=== PATIENT | male | born 1965 | race Caucasian/White ===

== ENCOUNTER 2017-12-12 07:14 | Day surgery (SDC) | payer BC ==
[2017-12-08 11:48] VITALS: BMI 28.2
[~2017-12-12 07:14] MED LIST: LACTATED RINGERS 1,000 ML IV SCH
[2017-12-12 07:30] VITALS: TEMP 97
[2017-12-12] MEDS ORDERED: LACTATED RINGERS 1,000 ML IV ONE (07:33)
[2017-12-12] MEDS ORDERED: PROPOFOL 10 MG/ML 20 ML VIAL IV ONE (08:18)
--- NOTE | 2017-12-12 09:01 | P.PCN ---
Date of Procedure: 12/12/17 Procedure(s) Performed: Procedure: Total colonoscopy. Preoperative diagnosis: Screening for neoplasia. Postoperative diagnoses: Exam within normal limits. Preparation: HalfLytely prep. Sedation: Was provided by anesthesia. Brief clinical history: The patient is a 52-year-old male who is scheduled for this evaluation for screening for neoplasia age being his risk factor. The patient may have had a prior exam more than 10 years ago. He has no abdominal complaints, bleeding or anemia. No family history of colon cancer. Procedure: With the patient on his left lateral decubitus position and after informed consent and adequate sedation, the perianal area was inspected and it did not show any fissures or fistulas. There were no masses felt on digital rectal examination. The Olympus CFQ 160L endoscope was then inserted in the rectum in the usual fashion and advanced to the cecum. The mucosa appeared healthy. No polyps or tumors were seen or any obvious diverticular disease or other pathology. I retroflexed the endoscope in the rectum before the endoscope was withdrawn. Low-grade internal hemorrhoids were noted but there was no evidence of bleeding. The patient tolerated the procedure well. Plan: The patient was reassured. Discussed dietary measures and local care for hemorrhoids. He will follow up with you as planned I recommended repeat exam in 10 years.
[2017-12-12 09:11] VITALS: RESP 18
[2017-12-12 09:24] VITALS: BP 139/85; PULSE 79
== END 2017-12-12 09:54 | disposition home or self-care (01) ==
LOC: ORWHC2ENDO 07:14
DX: Z12.11 Encounter for screening for malignant neoplasm of colon (principal); K64.8 Other hemorrhoids; I10 Essential (primary) hypertension; J45.909 Unspecified asthma, uncomplicated; Z79.1 Long term (current) use of non-steroidal anti-inflammatories (NSAID); Z79.899 Other long term (current) drug therapy
CPT/HCPCS: J2704; G0121; 45378